=== PATIENT | female | born 1975 | race Caucasian/White ===

== ENCOUNTER 2018-07-24 08:41 | Emergency (ER) | payer MEDICAID ==
[~2018-07-24] VITALS: Ht 157.5 cm; Wt 56.0 kg
[2018-07-24] MEDS ORDERED: SODIUM CHLORIDE 0.9% 1,000 ML IV ONE (10:00)
[2018-07-24] MEDS ORDERED: METOCLOPRAMIDE HCL 10MG/2ML VIAL IV ONE (10:00)
[2018-07-24] MEDS ORDERED: KETOROLAC 15MG/ML VIAL IV ONE (10:00)
[2018-07-24 12:05] VITALS: BP 103/64
== END 2018-07-24 12:07 | disposition home or self-care (01) ==
LOC: ER 08:41
DX: R51 Headache (principal); R11.0 Nausea; H53.8 Other visual disturbances
CPT/HCPCS: 81025; 96374; 96375; 99284; J1885; J2765; J7030

== ENCOUNTER 2021-04-18 04:31 | Emergency (ER) | payer MEDICAID ==
[~2021-04-18] VITALS: Ht 157.5 cm; Wt 61.0 kg
[2021-04-18] MEDS ORDERED: KETOROLAC 30MG/ML VIAL IV STA (05:55)
[2021-04-18] MEDS ORDERED: METOCLOPRAMIDE HCL 10MG/2ML VIAL IV ONE (06:00)
[2021-04-18] MEDS ORDERED: SODIUM CHLORIDE 0.9% 1,000 ML IV ONE (06:00)
[2021-04-18] MEDS ORDERED: IBUP-2028 PO (08:09)
[2021-04-18 08:17] VITALS: BP 101/61
== END 2021-04-18 08:55 | disposition home or self-care (01) ==
LOC: ER 04:31
DX: R51.9 Headache, unspecified (principal)
CPT/HCPCS: 81025; 96361; 96374; 96375; 99284; J1885; J2765; J7030

== ENCOUNTER 2023-01-10 08:48 | Emergency (ER) | payer MEDICAID ==
[~2023-01-10] VITALS: Ht 157.5 cm; Wt 60.0 kg
[~2023-01-10 08:48] MED LIST: IBUP-2028 PO
[2023-01-10 08:55] VITALS: BP 108/65
[2023-01-10] MEDS ORDERED: KETO5DRO73 EACHEYE (10:26)
== END 2023-01-10 10:37 | disposition home or self-care (01) ==
LOC: ER 08:48
DX: H10.13 Acute atopic conjunctivitis, bilateral (principal)
CPT/HCPCS: 99282